=== PATIENT | female | born 1975 ===

== ENCOUNTER 2017-09-19 09:14 | Emergency (ER) | payer OTHER ==
--- NOTE | 2017-09-19 10:57 | ED PDOC ---
HPI: CCC, URI, Sore Throat Time Seen by Provider: 09/19/17 09:37 Chief Complaint (Nursing): Cough, Cold, Congestion Chief Complaint (Provider): URI History Per: Patient Additional Complaint(s): Patient is a 42 yo female, no PMH, presents to ED with complaints of cough and congestion x 3 days. Complaints of tactile fever at night time. Denies nausea, vomiting or diarrhea. Past Medical History Reviewed: Nursing Documentation, Vital Signs Vital Signs: Last Vital Signs Temp 98.6 F 09/19/17 09:34 Pulse 73 09/19/17 09:34 Resp 21 09/19/17 09:34 BP 124/77 09/19/17 09:34 Pulse Ox 98 09/19/17 10:56 - Medical History PMH: No Chronic Diseases - Surgical History Surgical History: No Surg Hx - Family History Family History: States: No Known Family Hx - Living Arrangements Living Arrangements: With Family - Social History Current smoker - smoking cessation education provided: No Alcohol: None Drugs: Denies - Home Medications Home Medications: Ambulatory Orders Medication Instructions Recorded Oseltamivir [Tamiflu] 75 mg PO BID 5 Days cap 09/19/17 Promethazine HCl/Codeine 5 ml PO HS #80 ml 09/19/17 [Prometh-Codein 6.25-10 mg/5 ml] - Allergies Allergies/Adverse Reactions: Allergies Allergy/AdvReac Type Severity Reaction Status Date / Time No Known Allergies Allergy Verified 09/19/17 09:46 Review of Systems ROS Statement: Except As Marked, All Systems Reviewed And Found Negative Constitutional: Positive for: Fever (tactile) ENT: Positive for: Nose Congestion Respiratory: Positive for: Cough Physical Exam - Reviewed Nursing Documentation Reviewed: Yes Vital Signs Reviewed: Yes - Physical Exam Appears: Positive for: Well, Non-toxic, No Acute Distress Head Exam: Positive for: ATRAUMATIC, NORMAL INSPECTION, NORMOCEPHALIC Skin: Positive for: Normal Color, Warm, DRY Eye Exam: Positive for: EOMI, Normal appearance, PERRL ENT: Positive for: Normal ENT Inspection Neck: Positive for: Normal, Painless ROM Cardiovascular/Chest: Positive for: Regular Rate, Rhythm Respiratory: Positive for: CNT, Normal Breath Sounds Gastrointestinal/Abdominal: Positive for: Normal Exam, Bowel Sounds, Soft Back: Positive for: Normal Inspection Extremity: Positive for: Normal ROM Neurologic/Psych: Positive for: Alert, Oriented - ECG O2 Sat by Pulse Oximetry: 98 Medical Decision Making Medical Decision Making: CXR: NAD, as read by NANCIE Pt educated on supportive care measures and and advised to take medications as directed. follow up with PMD, return to ED with any concerns Disposition - Clinical Impression Clinical Impression: Influenza-like symptoms, Upper respiratory infection - Patient ED Disposition Is Patient to be Admitted: No - Disposition Disposition: Routine/Home Disposition Time: 13:02 Condition: STABLE Prescriptions: Oseltamivir [Tamiflu] 75 mg PO BID 5 Days cap Promethazine HCl/Codeine [Prometh-Codein 6.25-10 mg/5 ml] 5 ml PO HS #80 ml Instructions: Viral Upper Respiratory Infection, Adult (DC) Forms: [facility] (Frisian) Print Language: ARMENIAN
--- NOTE | 2017-09-19 11:38 | RAD ---
HISTORY: fever and cough COMPARISON: No prior. TECHNIQUE: Chest PA and lateral FINDINGS: LUNGS: No active pulmonary disease. PLEURA: No significant pleural effusion identified. No pneumothorax apparent. CARDIOVASCULAR: Normal. OSSEOUS STRUCTURES: No significant abnormalities. VISUALIZED UPPER ABDOMEN: Normal. OTHER FINDINGS: None. IMPRESSION: No active disease.
[2017-09-19 13:12] VITALS: BP 115/80; PULSE 75; RESP 16; TEMP 97.9; O2SAT 99
== END 2017-09-19 13:14 | disposition home or self-care (01) ==
LOC: H.ER 09:14
DX: J06.9 Acute upper respiratory infection, unspecified (principal); J11.1 Influenza due to unidentified influenza virus with other respiratory manifestations